=== PATIENT | male | born 1950 | race Caucasian/White ===

== ENCOUNTER 2018-04-10 10:17 | Emergency (ER) | payer MEDICARE, OTHER ==
[~2018-04-10] VITALS: Ht 177.8 cm; Wt 104.0 kg
[~2018-04-10 10:17] MED LIST: ARIP5TAB4 PO; FLO0.4C PO; PRED1DRO RIGHTEYE; TRAZ-91 PO; WEL100T PO
[2018-04-10 10:20] VITALS: BP 138/86
[2018-04-10] MEDS ORDERED: AZIT250T PO (10:59)
[2018-04-10] MEDS ORDERED: ALBU18HF2 INH (10:59)
[2018-04-10] MEDS ORDERED: DEC4T PO (10:59)
[2018-04-10] MEDS ORDERED: GUAI-178 PO (10:59)
== END 2018-04-10 11:11 | disposition home or self-care (01) ==
LOC: ER 10:17
DX: J44.9 Chronic obstructive pulmonary disease, unspecified (principal); G89.29 Other chronic pain; Z90.49 Acquired absence of other specified parts of digestive tract; Z98.890 Other specified postprocedural states; Z79.2 Long term (current) use of antibiotics; Z79.899 Other long term (current) drug therapy
CPT/HCPCS: 99283

== ENCOUNTER 2018-04-26 19:13 | Emergency (ER) | payer OTHER, MEDICARE ==
[~2018-04-26] VITALS: Ht 177.8 cm; Wt 94.0 kg
[~2018-04-26 19:13] MED LIST changes: +ALBU18HF2 INH; +DEC4T PO; +GUAI-178 PO
[2018-04-26] MEDS ORDERED: ketorolac trometh. 30mg/ml inj. IV ONE (19:35)
[2018-04-26 19:45] LABS: BASOPHILS # (AUTO) 0.1 X10'3 (0-0.2); BASOPHILS % (AUTO) 0.4 % (0-1); EOSINOPHILS # (AUTO) 0.4 X10'3 (0-0.9); EOSINOPHILS % (AUTO) 3.3 % (0-6); HEMATOCRIT 52.5 % (42.0-52.0); HEMOGLOBIN 17.6 g/dl (14.0-17.9); LYMPHOCYTES # (AUTO) 2.4 X10'3 (1.1-4.8); LYMPHOCYTES % (AUTO) 19.4 % (21-51); MEAN CORPUSCULAR HEMOGLOBIN 30.3 PG (27.0-31.0); MEAN CORPUSCULAR HGB CONC 33.4 % (33.0-36.5); MEAN CORPUSCULAR VOLUME 90.6 FL (78-98); MEAN PLATELET VOLUME 8.9 FL (7.4-10.4); MONOCYTES # (AUTO) 0.9 X10'3 (0-0.9); MONOCYTES % (AUTO) 6.8 % (2-12); NEUTROPHILS # (AUTO) 8.7 X10'3 (1.8-7.7); NEUTROPHILS % (AUTO) 70.1 % (42-75); PLATELET COUNT 294 X10'3 (140-440); RED CELL DISTRIBUTION WIDTH 13.9 % (11.5-14.5); WHITE BLOOD COUNT 12.5 X10'3 (4.5-11.0)
[2018-04-26 20:01] LABS: PROTHROMBIN TIME 9.9 SECONDS (9.0-12.0)
[2018-04-26 20:02] LABS: ALANINE AMINOTRANSFERASE 33 U/L (12-78); ALBUMIN 3.9 G/DL (3.4-5.0); ALBUMIN/GLOBULIN RATIO 1.1 (1.1-1.5); ALKALINE PHOSPHATASE 114 IU/L (46-116); ANION GAP 12 (8-16); ASPARTATE AMINO TRANSFERASE 22 U/L (10-37); BILIRUBIN,TOTAL 0.5 MG/DL (0.1-1.0); BLOOD UREA NITROGEN 14 MG/DL (7-18); BUN/CREATININE RATIO 11.4 (5.4-32.0); CALCIUM 8.9 MG/DL (8.5-10.1); CHLORIDE 104 MMOL/L (99-107); CREATININE 1.23 MG/DL (0.60-1.10); GLUCOSE 109 MG/DL (70-104); POTASSIUM 4.2 MMOL/L (3.5-5.1); SODIUM 140 MMOL/L (135-145); TOTAL CARBON DIOXIDE 24.5 MMOL/L (24-32); TOTAL PROTEIN 7.4 G/DL (6.4-8.2); eGFR 59 ML/MIN
[2018-04-26] MEDS ORDERED: benzonatate 100mg capsule PO ONE (20:30)
[2018-04-26] MEDS ORDERED: ipratropium/albuterol 3ml nebule NEB ONE (20:30)
[2018-04-26] MEDS ORDERED: levoFLOXACIN 250mg tablet PO ONE (20:35)
[2018-04-26 20:36] LABS: CLARITY,URINE CLEAR (Clear); COLOR,URINE YELLOW (Yellow); GLUCOSE, URINE NEGATIVE (Neg); KETONES,URINE NEGATIVE (Neg); LEUKOCYTE ESTERASE ,URINE NEGATIVE (Neg); NITRITES, URINE NEGATIVE (Neg); OCCULT BLOOD,URINE NEGATIVE (Neg); PH,URINE 5.5 (4.8-8.0); PROTEIN,URINE NEGATIVE (Neg); UROBILINOGEN,URINE 0.2 E.U/dL (0.2-1.0)
[2018-04-26] MEDS ORDERED: BENZ-16 PO (20:39)
[2018-04-26] MEDS ORDERED: AZIT-63 PO (20:39)
[2018-04-26 20:48] LABS: UA COLLECTION TYPE VOIDED
[2018-04-26 21:15] VITALS: BP 142/92
== END 2018-04-26 21:16 | disposition home or self-care (01) ==
LOC: ER 19:13
DX: R09.1 Pleurisy (principal); J40 Bronchitis, not specified as acute or chronic; G89.29 Other chronic pain; F17.210 Nicotine dependence, cigarettes, uncomplicated; Z90.49 Acquired absence of other specified parts of digestive tract; Z98.890 Other specified postprocedural states; Z79.899 Other long term (current) drug therapy
CPT/HCPCS: 36415; 71045; 80053; 81003; 83605; 83880; 84145; 85025; 85610; 87040; 87502; 87503; 93005; 94640; 94760; 96374; 99284; J1885

== ENCOUNTER 2018-07-27 11:17 | Outpatient (CLI) | payer OTHER, MEDICARE | END 2018-07-27 23:59 | disposition home or self-care (01) | LOC: RAD 11:17 | PROVIDERS: ATTEND Family Medicine | DX: R07.89 Other chest pain (principal); R10.819 Abdominal tenderness, unspecified site; F17.200 Nicotine dependence, unspecified, uncomplicated; Z72.89 Other problems related to lifestyle | CPT/HCPCS: 71046; 71100 ==

== ENCOUNTER 2018-08-10 07:52 | Outpatient (CLI) | payer OTHER, MEDICARE ==
[2018-08-10 09:02] LABS: BASOPHILS # (AUTO) 0.1 X10'3 (0-0.2); BASOPHILS % (AUTO) 1.2 % (0-1); EOSINOPHILS # (AUTO) 0.2 X10'3 (0-0.9); EOSINOPHILS % (AUTO) 2.1 % (0-6); HEMATOCRIT 52.4 % (42.0-52.0); HEMOGLOBIN 17.9 g/dl (14.0-17.9); LYMPHOCYTES # (AUTO) 1.8 X10'3 (1.1-4.8); MEAN CORPUSCULAR HGB CONC 34.2 g/dL (33.0-36.5); MEAN CORPUSCULAR VOLUME 90.8 FL (78-98); MEAN PLATELET VOLUME 8.9 FL (7.4-10.4); MONOCYTES # (AUTO) 0.8 X10'3 (0-0.9); MONOCYTES % (AUTO) 7.5 % (2-12); NEUTROPHILS # (AUTO) 7.2 X10'3 (1.8-7.7); NEUTROPHILS % (AUTO) 71.2 % (42-75); PLATELET COUNT 288 X10'3 (140-440); RED BLOOD COUNT 5.77 X10'6 (4.70-6.10); RED CELL DISTRIBUTION WIDTH 13.8 % (11.5-14.5); WHITE BLOOD COUNT 10.2 X10'3 (4.5-11.0)
[2018-08-10 09:36] LABS: ALANINE AMINOTRANSFERASE 30 U/L (12-78); ALBUMIN 3.9 G/DL (3.4-5.0); ALBUMIN/GLOBULIN RATIO 1.1 (1.1-1.5); ALKALINE PHOSPHATASE 117 IU/L (46-116); ANION GAP 9 (8-16); ASPARTATE AMINO TRANSFERASE 14 U/L (10-37); BILIRUBIN,TOTAL 0.6 MG/DL (0.1-1.0); BLOOD UREA NITROGEN 12 MG/DL (7-18); BUN/CREATININE RATIO 9.8 (5.4-32.0); CALCIUM 9.2 MG/DL (8.5-10.1); CHLORIDE 105 MMOL/L (99-107); CHOL/HDL RATIO 3.9 (0.00-4.99); CHOLESTEROL 151 MG/DL (0-200); CREATININE 1.23 MG/DL (0.60-1.10); GLUCOSE 105 MG/DL (70-104); HDL CHOLESTEROL 39 MG/DL (35-60); LDL CHOLESTEROL 100 MG/DL (50-100); POTASSIUM 4.4 MMOL/L (3.5-5.1); SODIUM 137 MMOL/L (135-145); TOTAL CARBON DIOXIDE 23.4 MMOL/L (24-32); TOTAL PROTEIN 7.5 G/DL (6.4-8.2); TRIGLYCERIDES 130 MG/DL (20-135); eGFR 59 ML/MIN
[2018-08-11 13:11] LABS: % FREE PSA 12.5 % (.); PSA, FREE 0.5 ng/mL
== END 2018-08-10 23:59 | disposition home or self-care (01) ==
LOC: LAB 07:52
PROVIDERS: ATTEND Family Medicine
DX: N40.1 Benign prostatic hyperplasia with lower urinary tract symptoms (principal); G47.00 Insomnia, unspecified; Z90.49 Acquired absence of other specified parts of digestive tract
CPT/HCPCS: 36415; 80053; 80061; 84153; 84154; 85025

== ENCOUNTER 2019-04-09 17:19 | Emergency (ER) | payer OTHER, MEDICARE ==
[~2019-04-09] VITALS: Ht 177.8 cm; Wt 92.0 kg
[~2019-04-09 17:19] MED LIST changes: +ARIP5TAB14 PO; -ARIP5TAB4 PO; +LIDOcaine 1% W/epiNEPHrine 1:100,000 20ml vial ONE
[2019-04-09 17:23] VITALS: BP 141/80
[2019-04-09] MEDS ORDERED: BACDS PO (18:39)
== END 2019-04-09 18:48 | disposition home or self-care (01) ==
LOC: ER 17:20
DX: L02.414 Cutaneous abscess of left upper limb (principal); G89.29 Other chronic pain; F32.9 Major depressive disorder, single episode, unspecified; F10.99 Alcohol use, unspecified with unspecified alcohol-induced disorder; Z90.49 Acquired absence of other specified parts of digestive tract; Z98.890 Other specified postprocedural states; Z87.442 Personal history of urinary calculi; Z79.899 Other long term (current) drug therapy; Y90.9 Presence of alcohol in blood, level not specified
CPT/HCPCS: 10060; 99283

== ENCOUNTER 2020-04-16 07:18 | Day surgery (SDC) | payer BC, MEDICARE ==
[2020-04-10 14:45] LABS: BASOPHILS # (AUTO) 0.1 X10'3 (0-0.2); BASOPHILS % (AUTO) 0.9 % (0-1); EOSINOPHILS # (AUTO) 0.2 X10'3 (0-0.9); LYMPHOCYTES # (AUTO) 1.6 X10'3 (1.1-4.8); LYMPHOCYTES % (AUTO) 14.1 % (21-51); MEAN CORPUSCULAR HEMOGLOBIN 32.4 PG (27.0-31.0); MEAN CORPUSCULAR HGB CONC 34.5 g/dL (33.0-36.5); MEAN CORPUSCULAR VOLUME 93.8 FL (78-98); MEAN PLATELET VOLUME 8.5 FL (7.4-10.4); MONOCYTES # (AUTO) 0.7 X10'3 (0-0.9); MONOCYTES % (AUTO) 5.6 % (2-12); NEUTROPHILS % (AUTO) 77.4 % (42-75); PRE OP HEMATOCRIT 50.3 % (42.0-52.0); PRE OP HEMOGLOBIN 17.4 g/dL (14.0-17.9); PRE OP PLATELET COUNT 259 X10'3 (140-440); RED BLOOD COUNT 5.37 X10'6 (4.70-6.10)
[2020-04-10 14:57] LABS: ALBUMIN/GLOBULIN RATIO 1.1 (1.1-1.5); ALKALINE PHOSPHATASE 105 IU/L (46-116); BLOOD UREA NITROGEN 11 MG/DL (7-18); BUN/CREATININE RATIO 9.3 (5.4-32.0); CALCIUM 9.6 MG/DL (8.5-10.1); CHLORIDE 104 MMOL/L (99-107); CREATININE 1.18 MG/DL (0.60-1.10); PRE OP ALT 26 U/L (30-65); PRE OP ANION GAP 7 (8-16); PRE OP AST 14 U/L (10-37); PRE OP BILIRUB, TOTAL 0.6 MG/DL (0.0-1.0); PRE OP GLUCOSE 105 MG/DL (70-104); PRE OP POTASSIUM 4.2 MMOL/L (3.4-5.1); PRE OP SODIUM 138 MMOL/L (135-145); TOTAL CARBON DIOXIDE 27.5 MMOL/L (24-32); TOTAL PROTEIN 7.5 G/DL (6.4-8.2); eGFR 61 ML/MIN
[~2020-04-16] VITALS: Ht 177.8 cm; Wt 94.8 kg
[2020-04-16] VITALS (8 sets, daily range): BP systolic 128–141; BP diastolic 89–97
[~2020-04-16 07:18] MED LIST changes: -ALBU18HF2 INH; -ARIP5TAB14 PO; +BUPIVAcaine/PF 2.5mg/ml (0.25%) 10ml vial ONE; -DEC4T PO; -FLO0.4C PO; -GUAI-178 PO; -LIDOcaine 1% W/epiNEPHrine 1:100,000 20ml vial ONE; -PRED1DRO RIGHTEYE; +QUET100T33 PO; -TRAZ-91 PO; -WEL100T PO; +ceFAZolin 2gm in dextrose, iso 50 ML IV ONE; +famotidine 20mg tablet PO ONE; +ringers solution, lacted 1,000 ML IV SCH
[2020-04-16] MEDS ORDERED: LIDOcaine 0.5% (5mg/ml) 50ml vial ONE (08:11)
[2020-04-16] MEDS ORDERED: morphine 2 MG/ML inj. syringe IV PRN (08:50)
[2020-04-16] MEDS ORDERED: meperidine/PF 25mg/ml syringe IV PRN ×3 (08:50)
[2020-04-16] MEDS ORDERED: morphine 4 MG/ML inj SYRINge IV PRN (08:50)
[2020-04-16] MEDS ORDERED: proCHLORperazine 10 MG/2 ml inj IV PRN (08:50)
[2020-04-16] MEDS ORDERED: ondansetron/PF 4mg/2ml inj IV PRN (08:50)
[2020-04-16] MEDS ORDERED: ringers solution, lacted 1,000 ML IV SCH (08:50)
[2020-04-16] MEDS ORDERED: fentaNYL/PF 50MCG/1 ML 2ML syringe ONE (09:16)
[2020-04-16] MEDS ORDERED: MIDAZolam 5mg/5ml vial ONE (09:17)
[2020-04-16] MEDS ORDERED: BUPIVAcaine/PF 2.5mg/ml (0.25%) 10ml vial ONE (09:30)
--- NOTE | 2020-04-16 09:49 | NUR ---
Received from OR via [facility], accompanied by Anesthesiologist DR HENDRICKSON and report given by Anesthesiologist. PT AWAKE, DENIES PAIN, RIGHT ELBOW W/BIAS DRSG COVERING INCISION/DRSG CDI. Addendum: 04/16/20 at 1009 by Mandie Barton RN Amended: Links added.
--- NOTE | 2020-04-16 11:09 | NUR ---
PT UP AND ABLE TO AMBULATE SAFELY, DENIES PAIN, D/C INSTRUCTIONS GIVEN AND GONE OVER W/PT WHO VERBALIZED UNDERSTANDING. PT D/CD TO HOME VIA W/C TO PRIVATE VEHICLE W/O INCIDENT. Addendum: 04/16/20 at 1126 by Mandie Barton RN Amended: Links added.
== END 2020-04-16 11:09 | disposition home or self-care (01) ==
LOC: PAS 07:18
PROVIDERS: ATTEND Orthopaedic Surgery Hand Surgery
DX: G56.21 Lesion of ulnar nerve, right upper limb (principal); Z72.0 Tobacco use; Z20.828 Contact with and (suspected) exposure to other viral communicable diseases; Z79.899 Other long term (current) drug therapy; M19.011 Primary osteoarthritis, right shoulder; Z98.890 Other specified postprocedural states; Z80.8 Family history of malignant neoplasm of other organs or systems
CPT/HCPCS: 36415; 64718; 80053; 82948; 85025; 87635; 93005; C9803; J2001; J2250; J3010; J3490; A4215; A6449; J7120

== ENCOUNTER 2024-05-17 09:45 | Outpatient (CLI) | payer MEDICARE, MEDICAID ==
[~2024-05-17 09:45] MED LIST changes: -BUPIVAcaine/PF 2.5mg/ml (0.25%) 10ml vial ONE; -QUET100T33 PO; +QUET100T34 PO; -ceFAZolin 2gm in dextrose, iso 50 ML IV ONE; -famotidine 20mg tablet PO ONE; -ringers solution, lacted 1,000 ML IV SCH
== END 2024-05-17 23:59 | disposition home or self-care (01) ==
LOC: RAD 09:45
PROVIDERS: ATTEND Family Medicine
DX: Z12.2 Encounter for screening for malignant neoplasm of respiratory organs (principal); J43.8 Other emphysema; R91.8 Other nonspecific abnormal finding of lung field; J98.11 Atelectasis; J98.4 Other disorders of lung; I25.10 Atherosclerotic heart disease of native coronary artery without angina pectoris; I71.21 Aneurysm of the ascending aorta, without rupture; M43.8X4 Other specified deforming dorsopathies, thoracic region; F17.210 Nicotine dependence, cigarettes, uncomplicated
CPT/HCPCS: 71271